=== PATIENT | male | born 1985 | race Two or more races ===

== ENCOUNTER 2021-06-14 15:32 | Emergency (ER) | payer OTHER ==
[~2021-06-14] VITALS: Ht 170.2 cm; Wt 59.0 kg
[2021-06-14] MEDS ORDERED: SODIUM CHLORIDE 0.9% 1,000 ML IV ONE ×3 (15:45→17:15)
[2021-06-14 16:09] LABS: Hemoglobin 8.7 g/dL (13.5-17.5); Monocytes # (auto) 0.8 10 ^3/uL (0-1.3); White Blood Cell 10.8 10^3/uL (4.4-10.8)
[2021-06-14 16:12] LABS: Basophils # (auto) 0.2 10 ^3/uL (0-0.2); Basophils % (auto) 1.5 % (0.0-2.0); Eosinophils % (auto) 9.3 % (0.0-7.0); Hematocrit 23.9 % (41.0-53.0); Lymphocytes # (auto) 3.7 10 ^3/uL (0.4-5.4); Lymphocytes % (auto) 33.9 % (10.0-50.0); Mean Corpuscular Hemoglobin 38.2 pg (28.0-32.0); Mean Corpuscular Hgb Conc. 36.4 g/dL (32.0-36.0); Mean Corpuscular Volume 104.9 fL (80.0-100.0); Monocytes % (auto) 7.6 % (0.0-12.0); Neutrophils # (auto) 5.2 10 ^3/uL (1.6-8.6); Neutrophils % (auto) 47.7 % (37.0-80.0); Red Blood Cells 2.28 10^6/uL (4.5-5.90)
[2021-06-14 16:16] LABS: Nucleated Red Blood Cells % 4.2 %; Red Cell Distribution Width 22.3 % (11.8-14.3)
[2021-06-14 16:49] LABS: Calcium 8.5 mg/dL (8.5-10.1); Potassium 3.6 mmol/L (3.5-5.1)
[2021-06-14 16:55] LABS: BUN/Creatinine Ratio 7.8; Bilirubin, Total 6.9 mg/dL (0.2-1.0); Total Protein 6.7 g/dL (6.4-8.2)
[2021-06-14] MEDS ORDERED: MORPHINE SULFATE INJECTION 2 MG/ML SYRG IV ONE (17:15)
[2021-06-14] MEDS ORDERED: ONDANSETRON HCL 4 MG/2 ML VIAL IV ONE (17:15)
[2021-06-14 18:01] LABS: INR 1.25 (0.9-1.15); Partial Thromboplastin Time 25.6 sec (23.6-33.0)
[2021-06-14 19:50] VITALS: BP 112/76
== END 2021-06-14 20:40 | disposition left against medical advice (07) ==
LOC: ER 15:33
DX: D57.00 Hb-SS disease with crisis, unspecified (principal); D53.9 Nutritional anemia, unspecified; K80.20 Calculus of gallbladder without cholecystitis without obstruction; E80.6 Other disorders of bilirubin metabolism
CPT/HCPCS: 36415; 71045; 74176; 76705; 80053; 83735; 85025; 85045; 85610; 85730; 96361; 96374; 96375; 99285; J2270; J2405; J7030